=== PATIENT | female | born 1975 | race Caucasian/White ===

== ENCOUNTER 2024-09-29 21:58 | Observation (INO) | payer SELFPAY ==
[2024-09-29] VITALS (7 sets, daily range): BP systolic 114–132; BP diastolic 69–80; PULSE 75–88; RESP 15–17; TEMP 36.6; O2SAT 94–97; BMI 45.2
--- NOTE | 2024-09-29 22:23 | ECG_ITS ---
APPROVED REPORT Exam: Resting ECG HR:87 bpm ECG Measurements Heart Rate 87 AXES GA 154 P 63 QRSd 81 QRS 16 QT 377 T 30 QTc 421 Conclusion SINUS RHYTHM LOW QRS VOLTAGE IN PRECORDIAL LEADS [QRS DEFLECTION < 1.0 mV IN CHEST LEADS] POSSIBLE ANTERIOR MYOCARDIAL INFARCTION , OF INDETERMINATE AGE [30 ms Q WAVE IN V3/V4, OR R < 0.2 mV IN V4] POSSIBLE INFERIOR MYOCARDIAL INFARCTION , PROBABLY OLD [30 ms Q WAVE IN II/aVF] No STEMI Electronically signed by : GIOVANNA SMITH, 09/30/2024 06:14:57
--- OUTSIDE RECORDS SUMMARY | 2024-09-29 22:24 | XMS_ITS ---
Author Organization Unknown Medications Medication Instructions Effective Dates (start - stop) Status aripiprazole 10 MG Oral Tablet 2 [id number]:00:00.000+00:00 - Completed citalopram 40 MG Oral Tablet 202 07-18-21:00:00.000+00:00 - Completed clotrimazole 10 MG/ML Topica l Cream [id number]:00:00.000+00:0 0 - Completed 24 HR bupropion hydrochlorid e 150 MG Extended Release Oral Tablet [id number]:00:00.00 0+00:00 - Completed 24 HR bupropion hydrochlorid e 150 MG Extended Release Oral Tablet [id number]:00:00.00 0+00:00 - Completed aripiprazole 10 MG Oral Tablet 2 [id number]:00:00.000+00:00 - Completed clonidine hydrochloride 0.1 MG Oral Tablet [id number]:00:00.000+00:0 0 - Completed aripiprazole 10 MG Oral Tablet 2 [id number]:00:00.000+00:00 - Completed citalopram 40 MG Oral Tablet 202 06-27-29:00:00.000+00:00 - Completed citalopram 40 MG Oral Tablet 202 06-24-22:00:00.000+00:00 - Completed citalopram 40 MG Oral Tablet 202 07-17-24:00:00.000+00:00 - Completed clonidine hydrochloride 0.1 MG Oral Tablet [id number]:00:00.000+00:0 0 - Completed aripiprazole 10 MG Oral Tablet 2 512-98-72P37:00:00.000+00:00 - Completed citalopram 40 MG Oral Tablet 202 06-26-23:00:00.000+00:00 - Completed pantoprazole 40 MG Delayed Release Oral Tablet [id number]:00:00.000+00:0 0 - Completed 24 HR bupropion hydrochlorid e 150 MG Extended Release Oral Tablet [id number]:00:00.00 0+00:00 - Completed 24 HR bupropion hydrochlorid e 150 MG Extended Release Oral Tablet [id number]:00:00.00 0+00:00 - Completed 24 HR bupropion hydrochlorid e 150 MG Extended Release Oral Tablet [id number]:00:00.00 0+00:00 - Completed aripiprazole 10 MG Oral Tablet 2 586-58-58P25:00:00.000+00:00 - Completed aripiprazole 10 MG Oral Tablet 2 038-29-01O51:00:00.000+00:00 - Completed citalopram 40 MG Oral Tablet 202 07-16-00:00:00.000+00:00 - Completed aripiprazole 10 MG Oral Tablet 2 021-26-02N17:00:00.000+00:00 - Completed 24 HR bupropion hydrochlorid e 150 MG Extended Release Oral Tablet [id number]:00:00.00 0+00:00 - Completed aripiprazole 10 MG Oral Tablet 2 [id number]:00:00.000+00:00 - Completed clonidine hydrochloride 0.1 MG Oral Tablet [id number]:00:00.000+00:0 0 - Completed citalopram 40 MG Oral Tablet 202 06-25-15:00:00.000+00:00 - Completed citalopram 40 MG Oral Tablet 202 07-19-24:00:00.000+00:00 - Completed aripiprazole 10 MG Oral Tablet 2 908-22-60O73:00:00.000+00:00 - Completed citalopram 40 MG Oral Tablet 202 07-14-30:00:00.000+00:00 - Completed aripiprazole 10 MG Oral Tablet 2 [id number]:00:00.000+00:00 - Completed citalopram 20 MG Oral Tablet 202 2-09-23T00:00:00.000+00:00 - Completed citalopram 20 MG Oral Tablet 06-23-05:00:00.000+00:00 - Completed citalopram 20 MG Oral Tablet 07-20-07:00:00.000+00:00 - Completed citalopram 20 MG Oral Tablet 07-20-05:00:00.000+00:00 - Completed amoxicillin 875 MG / clavula nasir 125 MG Oral Tablet [id number]:00:00.000+00:0 0 - Completed citric acid 75 MG/ML / magne sium oxide 21.9 MG/ML / picosulfate sodium 0.0625 MG/ML Oral Solution [Clenpiq] [id number]:00:00.000+00:0 0 - Completed Patient Care team information Name Category Status Period Participants - - Proposed period not known -
--- OUTSIDE RECORDS SUMMARY | 2024-09-29 22:24 | XMS_ITS | Data Portability ---
Author Organization [facility] [place] Address [address] [place] [id number] Care Team Providers Care Telecommunications Line Installer Name Role Phone WILBERVIMALMinnieCHELLY Primary Care Provider Assessment Encounter Date Assessment Date Assessment LastModified by Organization Details LastModified Time 02/01/2023 02/01/2023 47-year-old female with: 1) CBD and pancreatic duct dilation: No clear evidence of obstruction or mass seen on recent outside MRI. Hepatic function labs unremarkable on 01/10. Coursened hepatic echotexture seen on US liver. -Schedule EUS +/- ERCP -Obtain comprehensive lab workup of potential causes of liver disease. She reports an extensive paternal family history of cirrhosis, grandfather with pancreatic cancer. -Repeat lipase 2) Diarrhea/pale stools: Obtain stool studies per below. 3) Colorectal cancer screening: Repeat colonoscopy suggested 05/2032 for screening purposes. [email or web address] Not available 02/01/2023 16:54:29 03/17/2023 03/17/2023 47-year-old female with: 1) CBD and pancreatic duct dilation: No clear evidence of obstruction or mass seen on recent outside MRI. Views on EUS were limited due to gastric bypass. Hepatic function labs unremarkable on 01/10 and again on 01/31. Lipase was minimally elevated at 93. Coursened hepatic echotexture seen on US liver. -Schedule EUS +/- ERCP -She reports an extensive paternal family history of cirrhosis, grandfather with pancreatic cancer. -Will check a fecal elastase per below. -No clear evidence of liver pathology currently. She may have sequela of prior HUNT. She is s/p gastric bypass. 2) Diarrhea/pale stools: Obtain stool studies per below. 3) Colorectal cancer screening: Repeat colonoscopy suggested 05/2032 for screening purposes. Not available 03/17/2023 17:44:45 Plan of Treatment Reminders Order Date Submit Date Provider Last Modified By Organization Details Last Modified Time Details Appointments None recorded. Lab gastrointes tinal pathogens panel, PCR, stool 2022 023 [email or web address], [address], [address], [place], [address], 3 12:21:14 pancreatic elastase, stool 2022 023 acaldwell 64 [facility], [address], [address], [place], [address], 3 12:21:14 fecal fat, qualitative , stool 2022 023 [email or web address], [address], [address], [place], [address], 3 12:21:14 O&P (ova & parasites), stool 2022 0[facility], [address], [address], [place], [address], 3 12:21:15 gastrointes tinal pathogens panel, PCR, stool [address] (Registration ), [address], [place], [address], 3 10:28:50 pancreatic elastase, stool [address] (Registration ), [address], [place], [address], 3 10:28:51 fecal fat, qualitative , stool [address] (Registration ), [address], [place], [address], 3 10:28:51 O&P (ova & parasites), stool [address] (Registration ), [address] [facility], [place], [address], 3 10:28:51 mitochondri al Ab, serum [address] (Registration ), [address] [facility], [place], [address], 3 10:28:51 smooth muscle Ab, serum [address] (Registration ), [address] [facility], [place], [address], 3 10:28:51 IgG, QN, serum [address] (Registration ), [address] [facility], [place], [address], 3 10:28:51 JULIANA (antinuclea r antibodies) screen, serum 2022 023 [facility] (Registration ), [address] [facility], [place], [address], 3 13:12:19 hepatic function panel, serum [address] (Registration ), [address] [facility], [place], [address], 3 10:28:52 lipase, serum or plasma [address] (Registration ), [address] [facility], [place], [address], 3 10:28:52 hepatitis panel (A+B+C), acute, serum [address] (Registration ), [address] [place] [address], [place], [address], 3 10:28:52 hepatitis B surface Ab, quantitativ e, serum [address] (Registration ), [address] [facility], [place], [address], 3 10:28:52 hepatitis A Ab, total, serum [address] (Registration ), [address] [facility], [place], [address], 3 10:28:52 ferritin, serum or plasma [address] (Registration ), [address] [facility], [place], [address], 3 10:28:52 hemochromat osis mutation (hfe), blood/tissu e [address] (Registration ), [address] [place] [address], [place], [address], 3 10:28:53 alpha-1-ant itrypsin (aat), QN, serum [address] (Registration ), [address] [place] [address], [place], [address], 3 10:28:53 alpha-1-ant itrypsin (aat) phenotype, serum [address] (Registration ), [address] [place] [address], [place], [address], 3 10:28:53 ceruloplasm in, serum 2022 023 acaldwell 64 [facility] (Registration ), [address], [place], [address], 10:28:53 Referral None recorded. Procedures None recorded. Surgeries None recorded. Imaging None recorded. Medication Orders None recorded. Patient TargetsNo targets recorded. Patient InstructionsNo instructions recorded. Reason for Referral None Reported. Results Created Date Observation Date Name Description Value Unit Range Abnormal Flag Note LastModifiedBy Organization Detail LastModifiedTime 02/02/2002/01/2023 HEPAT IC FUNCT IONAL PANEL total protein 6.9 g/dL 6.4-8. 2 Not Available [facility] ([facility]) [address], [place], [address], 02/01/2023 18:44:29 02/02/20 23 02/01/2023 HEPAT IC FUNCT IONAL PANEL albumin 3.6 g/dL 3.4-5. 0 Not Available [facility] ([facility]) [address], [place], [address], 02/01/2023 18:44:29 02/02/20 23 02/01/2023 HEPAT IC FUNCT IONAL PANEL bilirubin direct 0.1 O.oo-0 .30 Not Available [facility] ([facility]) [address], [place], [address], 02/01/2023 18:44:29 02/02/20 23 02/01/2023 HEPAT IC FUNCT IONAL PANEL bilirubin total 0.20 mg/dL 0.10-1 .00 Not Available [facility] ([facility]) [address], [place], [address], 02/01/2023 18:44:29 02/02/20 23 02/01/2023 HEPAT IC FUNCT IONAL PANEL bilirubin indirect 0.10 Not Available [facility] ([facility]) [address], [place], [address], 02/01/2023 18:44:29 02/02/20 23 02/01/2023 HEPAT IC FUNCT IONAL PANEL AST (SGOT) 28 U/L 0-37 Not Available [facility] ([facility]) [address] , [place], [address], 02/01/2023 18:44:29 02/02/20 23 02/01/2023 HEPAT IC FUNCT IONAL PANEL ALT (SGPT) 32 U/L 0-65 Not Available [facility] ([facility]) [address] , [place], [address], 02/01/2023 18:44:29 02/02/20 23 02/01/2023 HEPAT IC FUNCT IONAL PANEL alk phosphatase 93 U/L 46-116 Not Available [facility] ([facility]) [address] [place] [address], [place], [address], 02/01/2023 18:44:29 02/02/20 23 02/01/2023 LIPAS E lipase 93 U/L 16-77 high Not Available [facility] ([facility]) [address] [place] [address], [place], [address], 02/01/2023 18:44:30 02/02/20 23 02/01/2023 LUCÍA TIN ferritin, serum 77 NG/mL 3-244 Not Available [facility] ([facility]) [address] , [place], [address], 02/01/2023 18:44:31 02/02/20 23 02/03/2023 JULIANA W/REF HEAVEN IF POSIT GALINA antinuclear Ab, direct NEGATI VE negati ve Perfo rmed at: CB - [facility] ([facility]) [address] [address] Lab Direc tor: James puente PhD, Phone : [phone] Not Available [facility] ([facility]) [address] , [place], [address], 02/03/2023 13:12:19 02/02/20 23 02/11/2023 A1A DEFIC ENCY PROFI LE aat, DNA analysis Commen t c.109 6 G>A (p.Gl u366L ys), Z allel e - Not detec jackelin c.863 A>T (p.Gl u288V al), S allel e - Detec jackelin, heter ozygo us Not assoc iated with incre ased risk of devel oping clini uma relev ant sympt oms of alpha -1 antit rypsi n defic iency . See Addit ional Clini ruby Infor matio n and Comme nts. Not Available [facility] ([facility]) [address] , [place], [address], 02/11/2023 17:10:46 02/02/20 23 02/11/2023 A1A DEFIC ENCY PROFI LE additional information: Commen t . Addit ional Clini ruyb Infor matio n: Alpha -1 antit rypsi n defic iency is an autos omal reces sive metab olic disor monserrat with varia ble sever ity and age at onset . Signs and sympt oms may inclu de incre ased risk for chron ic obstr uctiv e lung disea se that typic ally manif ests after age 30, liver disea se, and liver cance r. Liver disea se can be prese nt in infan cy as neona nicolle aquilino stasi s (stephani dice) or in adult parkinson as cirrh osis and fibro sis. Lung and liver disea se may be accel erate d by envir onmen nicolle expos ures such as smoki ng and exces sive alcoh ol use. Estab lishe d treat ments for COPD and emphy sema are used to treat lung disea se; lung and/o r liver trans plant ation may be an optio n for those with with sever e disea se. Intra venou s augme ntati on thera py may be avail able for patie nts who meet crite sujey. . Comme nts: The ZZ and SZ genot ypes accou nt for more than 95% of indiv idual s with sever e alpha -1 antit rypsi n defic iency . To rule out other varia nts, furth er testi ng of sympt omati c indiv idual s heter ozygo us for one varia nt (S or Z) or with negat galina resul ts may inclu de pheno typin g (PI typin g), AAT level testi ng, and/o r expan ded genot yping . . Twila ic couns jannet is recom tony d to discu ss the poten tial clini ruby impli catio ns of posit galina resul ts, as well as recom menda tions for testi ng famil y membe rs. Twila ic Coord inato rs are avail able for healt h care provi ders to discu ss resul ts at [phone] ([phone] . Test Detai ls: Two varia nts jorge luis zed: c.109 6 G>A (p.Gl u366L ys), commo nly refer red to as the Z allel e or PI*Z c.863 A>T (p.Gl u288V al), commo nly refer red to as the S allel e or PI*S . Metho ds/Li mitat ions: DNA jorge luis sis of the S and Z allel es in the SERPI NA1 gene ([id number]) was perfo rmed by multi plex allel e-spe cific PCR ampli ficat ion follo wed by gel elect ropho resis . Resul ts must be combi neftali with clini ruby infor matio n for the most accur ate inter preta tion. Molec ular- based testi ng is highl y accur ate, but as in any labor atory test, rare diagn ostic error s may occur . False posit galina or false negat galina resul ts may occur for reaso ns that inclu de twila ic varia nts, blood trans fusio ns, bone marro w trans plant ation , somat ic or tissu e-spe cific mosai cism, misla beled sampl es, or iman eous repre senta tion of famil y relat ionsh ips. . This test was devel oped and its perfo rmanc e augusto cteri stics deter mined by [facility]. It has not been clear ed or appro joyce by the Food and Drug Admin istra tion. . Refer ences : Marcus naidu RA, Sarita erwin G, Phillip phillips ML, Bernadette alvarado M, Cisco CE, Ronald an K, Lisa meeks DK, Leslie t SL, Brenda alvarado JM, Mera BENAVIDEZ, Domenic muñiz C, Hiral blue J. The Diagn osis and Manag ement of Alpha -1 Antit rypsi n Defic iency in the Adult . Chron ic Obstr Pulm Dis. 2016 Oct 19;3(3 ):668 -682. doi: 10.15 326/j copdf .3.32014. 0182. PMID: 85370 891; PMCID : PMC55 22748 . Mera BENAVIDEZ, Brendan christie V, Steffanie BARKLEY. Alpha -1 Antit rypsi n Defic iency . 2005Mar 11 Updat ed 2019October 03 . In: Marcos MP, Elva FLEMING, Barb MOTLEY, et al., yasmeen rs. GeneR inocenciaw s(R) Inter net . [place]andro ricks ([place]): [facility] [place]; 1992- 2020. Avail able from: https ://rosie harvey.nickolasb i.nlm .nih. gov/b ooks/ NBK15 19/ Not Available [facility] ([facility]) [address] [facility], [place], [address], 02/11/2023 17:10:46 02/02/2002/11/2023 A1A DEFIC ENCY PROFI LE a1a sign Rose Marie Rutherford, PhD Not Available [facility] ([facility]) [address] [facility], [place], [address], 02/11/2023 17:10:46 02/02/2002/11/2023 A1A DEFIC ENCY PROFI LE a1a rfx to phenotype Commen t A1A Pheno type is indic ated for this speci men. Perfo rmed at: BN - [facility] [address] [place] [address] Lab Direc tor: Elizabeth howard MD, Phone : [phone] Perfo rmed at: TG - [facility] RTP [address] [facility] , [place] [address] Lab Direc tor: K[facility] , Phone : [phone] Not Available [facility] ([facility]) [address] [facility], [place], [address], 02/11/2023 17:10:46 02/02/20 23 02/11/2023 A1A DEFIC ENCY PROFI LE gueqd-9-[id number] trypsin,seru m 116 mg/dL 101-18 7 Not Available [facility] ([facility]) [address] [facility], [place], [address], 02/11/2023 17:10:46 02/02/20 23 02/11/2023 ACUTE HEPAT ITIS PANEL hep A Ab, IgM Negati ve negati ve Not Available [facility] ([facility]) [address] [facility], [place], [address], 02/11/2023 17:10:47 02/02/20 23 02/11/2023 ACUTE HEPAT ITIS PANEL HBsAg screen Negati ve negati ve Not Available [facility] ([facility]) [address] [facility], [place], [address], 02/11/2023 17:10:47 02/02/20 23 02/11/2023 ACUTE HEPAT ITIS PANEL hep B core Ab, IgM Negati ve negati ve Not Available [facility] ([facility]) [address] [facility], [place], [address], 02/11/2023 17:10:47 02/02/20 23 02/11/2023 ACUTE HEPAT ITIS PANEL HCV Ab Non Reacti ve non reacti ve Perfo rmed at: CB - [facility] [address] [facility], [place] [address] Lab Direc tor: James puente PhD, Phone : [phone] Not Available [facility] ([facility]) [address], [place], [address], 02/11/2023 17:10:47 02/02/20 23 02/11/2023 A1A DEFIC ENCY PROFI LE aat, DNA analysis Commen t c.109 6 G>A (p.Gl u366L ys), Z allel e - Not detec jackelin c.863 A>T (p.Gl u288V al), S allel e - Detec jackelin, heter ozygo us Not assoc iated with incre ased risk of devel oping clini uma relev ant sympt oms of alpha -1 antit rypsi n defic iency . See Addit ional Clini ruby Infor matio n and Comme nts. Not Available [facility] ([facility]) [address], [place], [address], 02/11/2023 17:10:48 02/02/20 23 02/11/2023 A1A DEFIC ENCY PROFI LE additional information: Commen t . Addit ional Clini ruby Infor matio n: Alpha -1 antit rypsi n defic iency is an autos omal reces sive metab olic disor monserrat with varia ble sever ity and age at onset . Signs and sympt oms may inclu de incre ased risk for chron ic obstr uctiv e lung disea se that typic ally manif ests after age 30, liver disea se, and liver cance r. Liver disea se can be prese nt in infan cy as neona nicolle aquilino stasi s (stephani dice) or in adult parkinson as cirrh osis and fibro sis. Lung and liver disea se may be accel erate d by envir onmen nicolle expos ures such as smoki ng and exces sive alcoh ol use. Estab lishe d treat ments for COPD and emphy sema are used to treat lung disea se; lung and/o r liver trans plant ation may be an optio n for those with with sever e disea se. Intra venou s augme ntati on thera py may be avail able for patie nts who meet crite sujey. . Comme nts: The ZZ and SZ genot ypes accou nt for more than 95% of indiv idual s with sever e alpha -1 antit rypsi n defic iency . To rule out other varia nts, furth er testi ng of sympt omati c indiv idual s heter ozygo us for one varia nt (S or Z) or with negat galina resul ts may inclu de pheno typin g (PI typin g), AAT level testi ng, and/o r expan ded genot yping . . Twila ic couns eling is recom tony d to discu ss the poten tial clini ruby impli catio ns of posit galina resul ts, as well as recom menda tions for testi ng famil y membe rs. Twila ic Coord inato rs are avail able for healt h care provi ders to discu ss resul ts at [phone] ). . Test Detai ls: Two varia nts jorge luis zed: c.109 6 G>A (p.Gl u366L ys), commo nly refer red to as the Z allel e or PI*Z c.863 A>T (p.Gl u288V al), commo nly refer red to as the S allel e or PI*S . Metho ds/Li mitat ions: DNA jorge luis sis of the S and Z allel es in the SERPI NA1 gene ([id number]) was perfo rmed by multi plex allel e-spe cific PCR ampli ficat ion follo wed by gel elect ropho resis . Resul ts must be combi neftali with clini ruby infor matio n for the most accur ate inter preta tion. Molec ular- based testi ng is highl y accur ate, but as in any labor atory test, rare diagn ostic error s may occur . False posit galina or false negat galina resul ts may occur for reaso ns that inclu de twila ic varia nts, blood trans fusio ns, bone marro w trans plant ation , somat ic or tissu e-spe cific mosai cism, misla beled sampl es, or iman eous repre senta tion of famil y relat ionsh ips. . This test was devel oped and its perfo rmanc e augusto cteri stics deter mined by [employer] [facility]. It has not been clear ed or appro joyce by the Food and Drug Admin istra tion. . Refer ences : Marcus naidu RA, Sarita o G, Phillip ly ML, Bernadette s M, Cisco CE, Ronald blue K, Lisa meeks DK, Leslie crenshaw SL, Brenda KUMAR, Mera barnard JK, Domenic muñiz C, Hiral Ward. The Diagn osis and Manag ement of Alpha -1 Antit rypsi n Defic iency in the Adult . Chron ic Obstr Pulm Dis. 2016 Oct 19;3(3 ):668 -682. doi: 10.15 326/j copdf .3.32014. 0182. PMID: 58235 891; PMCID : PMC55 80096 . Mera BENAVIDEZ, Brendan christie V, Steffanie BARKLEY. Alpha -1 Antit rypsi n Defic iency . 2005Mar 11 Updat ed 2019October 03 . In: Marcos MP, Elva higgins HH, Barb RA, et al., yasmeen rs. GeneR jake alvarado(R) Inter net . [place]): [employer] [place] [employer]; 1992- 2020. Avail able from: https ://ww w.ncb i.nlm .nih. gov/b ooks/ NBK15 19/ Not Available [facility] ([facility]) [address] [facility], [place], [address], 02/11/2023 17:10:48 02/02/20 23 02/11/2023 A1A DEFIC ENCY PROFI LE a1a sign Rose Marie Rutherford, PhD Not Available [facility] ([facility]) [address] [facility], [place], [address], 02/11/2023 17:10:48 02/02/20 23 02/11/2023 A1A DEFIC ENCY PROFI LE a1a phenotype confirmation MS Not Available [facility] ([facility]) [address], [place], [address], 02/11/2023 17:10:48 02/02/20 23 02/11/2023 A1A DEFIC ENCY PROFI LE a1a interpertati on Commen t Pheno type testi ng, using Isoel ectri c focus ing (IEF) metho dol ogy, shows confi rmati on of the A-1-A DNA Genot ype test resul t. Perfo rmed at: BN - [facility] [address] [facility] [place] [address] Lab Direc tor: Elizabeth howard MD, Phone : [phone] Not Available [facility] ([facility]) [address], [place], [address], 02/11/2023 17:10:48 02/02/20 23 02/11/2023 A1A DEFIC ENCY PROFI LE a1a rfx to phenotype Commen t A1A Pheno type is indic ated for this speci men. Perfo rmed at: BN - [facility] [address] [facility] [place] [address] Lab Direc tor: Elizabeth howard MD, Phone : [phone] Perfo rmed at: - [facility] RTP [address] [facility] , [place] [address] Lab Direc tor: Keshav [facility] , Phone : [phone] Not Available [facility] ([facility]) [address] [facility], [place], [address], 02/11/2023 17:10:48 02/02/20 23 02/11/2023 A1A DEFIC ENCY PROFI LE pgyte-2-jkxx trypsin,seru m 116 mg/dL 101-18 7 Not Available [facility] ([facility]) [address] [facility], [place], [address], 02/11/2023 17:10:48 02/02/20 23 02/11/2023 ACUTE HEPAT ITIS PANEL hep A Ab, IgM Negati ve negati ve Not Available [facility] ([facility]) [address], [place], [address], 02/11/2023 17:10:48 02/02/20 23 02/11/2023 ACUTE HEPAT ITIS PANEL HBsAg screen Negati ve negati ve Not Available [facility] ([facility]) [address] [facility], [place], [address], 02/11/2023 17:10:48 02/02/20 23 02/11/2023 ACUTE HEPAT ITIS PANEL hep B core Ab, IgM Negati ve negati ve Not Available [facility] ([facility]) [address] [facility], [place], [address], 02/11/2023 17:10:48 02/02/2002/11/2023 ACUTE HEPAT ITIS PANEL HCV Ab Non Reacti ve non reacti ve [facility] [address] [place], [place] [address] Lab Direc tor: James puente PhD, Phone : [phone] Not Available [facility] ([facility]) [address] [place], [address], 02/11/2023 17:10:48 02/02/20 23 02/11/2023 ACUTE HEPAT ITIS PANEL interpretati on: Commen t . Not infec jackelin with HCV unles s early or acute infec tion is suspe cted (whic h may be delay ed in an immun ocomp romis ed indiv idual ), or other evide nce exist s to indic ate HCV infec tion. 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 In sympt omati c indiv idual s, other cause s of iron overl oad shoul d be evalu ated. See Addit ional Infor matio n and Comme nts. . Addit ional Clini ruby Infor matio n: Hered itary hemoc hroma tosis (HFE relat ed) is an autos omal reces sive iron stora ge disor monserrat. Patie nts may have a twila ic diagn osis of hered itary hemoc hroma tosis and never show clini ruby sympt oms. Clini ruby sympt oms typic ally appea r betwe en 40 to 60 years in males and after menop ause in femal es. Signs and sympt oms may inclu de organ damag e, prima rily in the liver , risk for hepat ocell ular carci noma, diabe shankar, and heart disea se due to iron accum ulati on. Life expec tancy may be decre ased in indiv idual s who devel op cirrh osis. Treat ment for clini uma sympt omati c indiv idual s may inclu de thera peuti c phleb otomy . Liver trans plant may be used to treat end stage liver failu re. For preve ntive care, monit oring for iron overl oad is recom tony d for patie nts who are homoz ygous for c.845 G>A (p.Cy s282T yr) and have yet to exper ience clini ruby sympt oms. . Comme nts: The most commo n HFE varia nts assoc iated with hered itary hemoc hroma tosis are c.845 G>A (p.Cy s282T yr), c.187 C>G (p.Hi s63As p), c.193 A>T (p.Se r65Cy s). While patie nts homoz ygous for c.845 G>A (p.Cy s282T yr) are the most likel y to prese nt clini ruby sympt oms, less than 10% devel op clini uma signi fican t iron overl oad with tissu e and organ damag e. . Twila ic couns jannet is recom tony d to discu ss the poten tial clini ruby impli catio ns of posit galina resul ts, as well as recom menda tions for testi ng famil y membe rs. Twila ic Coord inato rs are avail able for healt h care provi ders to discu ss resul ts at [phone] ([phone] . Test Detai ls: Three varia nts jorge luis zed: c.845 G>A (p.Cy s282T yr), commo nly refer red to as C282Y c.187 C>G (p.Hi s63As p), commo nly refer red to as H63D c.193 A>T (p.Se r65Cy s), commo nly refer red to as S65C . Metho ds/Li mitat ions: DNA Jorge Luis sis of the HFE gene ([id number]) was perfo rmed by PCR ampli ficat ion follo wed by restr ictio n enzym e diges tion jorge luis ses. Resul ts must be combi neftali with clini ruby infor matio n for the most accur ate inter preta tion. Molec ular- based testi ng is highl y accur ate, but as in any labor atory test, diagn ostic error s may occur . False posit galina or false negat galina resul ts may occur for reaso ns that inclu de twila ic varia nts, blood trans fusio ns, bone marro w trans plant ation , somat ic or tissu e-spe cific mosai cism, misla beled sampl es, or iman eous repre senta tion of famil y relat ionsh ips. This test was devel oped and its perfo rmanc e augusto cteri stics deter mined by Devi washburn. It has not been clear ed or appro joyce by the Food and Drug Admin istra tion. . Refer ences : Clifton BR, Patricio PC, Komonchol ey KV, Miriam keenan LW, Zach keenan ; [employer]i can [employer] i[employer] n for the Study of Liver Disea ses. Diagn osis and manag ement of hemoc hroma tosis : 2010 pract ice guide line by the Ameri can Assoc iatio n for the Study of Liver Disea ses. Hepat ology . 2010; 4(1): 328-4 3. doi: 10.10 /meena p.243 30. PMID: 48957 290; PMCID : PMC31 51169 . Sandi G, Mega noguera P, Jossie howard DW, Sultana r H, Pablo freeman O, Monet n S, Jennifer o I, Paxton s M, Salvador savage S. EMQN best pract ice guide lines for the molec ular twila ic diagn osis of hered itary hemoc hroma tosis (HH). Eur J Hum Twila . 2016 Aug;2 4(4): 479-9 5. doi: 10.10 /ej hg.20 15.12 8. Epub 2014 8. PMID: 43313 218; PMCID : PMC49 79283 . Not Available [facility] ([facility]) [address], [place], [address], 02/11/2023 17:10:49 02/02/20 23 02/11/2023 HERED ITARY HEMOC HROMA TOSIS reviewed Rose Marie Rutherford, PhD Perfo rmed at: - Devi washburn [place] [address] , [place] [address] Lab Direc tor: Keshav [facility] , Phone : [phone] Not Available [facility] ([facility]) [address], [place], [address], 02/11/2023 17:10:49 02/02/2002/11/2023 HEP B S AB GINNY hep B surface Ab <3.1 mIU/m L immuni ty>9.9 low Statu s of Immun ity Anti- HBs Level ----- ----- ----- --- ----- ----- ---- Incon siste nt with Immun ity 0.0 - 9.9 Consi stent with Immun ity >9.9 Perfo rmed at: [place] [id number] [place], [place] [id number] Lab Direc tor: James puente PhD, Phone : [phone] Not Available [facility] ([facility]) [address] [facility], [place], [address], 02/11/2023 17:10:50 02/02/20 23 02/11/2023 ACTIN (SMOO TH MUSCL E) AB actin (smooth muscle) Ab 19 units 0-19 Negat galina 0 - 19 Weak posit galina 20 - 30 Moder ate to stron g posit galina >30 . Actin Antib odies are found in 52-85 % of patie nts with autoi mmune hepat itis or chron ic activ e hepat itis and in 22% of patie nts with prima ry bilia ry cirrh osis. Perfo rmed at: [place] [id number] [place] [address] Lab Direc tor: James puente PhD, Phone : [phone] Not Available [facility] ([facility]) [address] [facility], [place], [address], 02/11/2023 17:10:51 02/02/2002/11/2023 MITOC HONDR IAL ANTIB ODIES mitochondria l (M2) Ab <20.0 units 0.0-20 .0 Negat galina 0.0 - 20.0 Equiv ocal 20.1 - 24.9 Posit galina >24.9 . Mitoc hondr ial (M2) Antib odies are found in 90-96 % of patie nts with prima ry bilia ry cirrh osis. Perfo rmed at: [facility] [address] [place] [address] Lab Direc tor: James puente PhD, Phone : [phone] Not Available [facility] ([facility]) [address] [place], [address], 02/11/2023 17:10:52 02/02/20 23 02/11/2023 CERUL OPLAS MIN ceruloplasmi n 27.5 mg/dL 19.0-3 9.0 Perfo rmed at: [facility] [address] [place] [address] Lab Direc tor: James puente PhD, Phone : [phone] Not Available [facility] ([facility]) [address] [place], [address], 02/11/2023 17:10:53 02/02/20 23 02/11/2023 IGG IgG 847 mg/dL 586-16 02 Perfo rmed at: [facility] [address] [place] [address] Lab Direc tor: James puente PhD, Phone : [phone] Not Available [facility] ([facility]) [address] [place], [address], 02/11/2023 17:10:54 02/02/2002/11/2023 HEP A AB, TOTAL hep A Ab, total Positi ve negati ve delta Comme nt: The HAV total antib chepe assay detec ts both IgG and IgM but does not diffe renti ate betwe en them. A negat galina resul t sugge sts susce ptibi lity to infec tion. A posit galina resul t could be due to vacci natio n, previ ously resol joyce infec tion or activ e infec tion. Testi ng for HAV IgM shoul d be perfo rmed if activ e HAV infec tion is suspe cted. [facility] offer s profi les that will autom atica lly refle x posit galina HAV total antib chepe resul ts to IgM (e.g. , panel #[id number] HAV Antib chepe w/ Rfx). Perfo rmed at: - [facility] [address] [facility], [place] [id number] [facility] Lab Direc tor: James puente PhD, Phone : [phone] Not Available [facility] ([facility]) [address] , [place], [address], 02/11/2023 17:10:55 Result Notes None recorded. Problems Name Problem SNOMED Code Status Onset Date Resolution Date Notes Provider Name and Address Organization Details Recorded Time Abnormal findings diagnostic imaging of liver+biliar y tract 723014578 Active 2022 Gentry Stock PA-C [address] , [place], [address] , [facility] [place] 3 15:00:32 Pale feces 083079827 Active 2022 Gentry Stock PA-C [address] [place], [address] , [facility] & [place] 3 15:00:53 Diarrhea 18881297 Active 2022 Gentry Stock PA-C [address] [place], [address] , [facility] & [place] 3 15:01:01 Pancreatic lipase above reference range 602877343 Active 2022 Gentry Stock PA-C [address] , [place], [address] , [facility] & [place] 3 16:52:18 Problem Notes None recorded. Medical Equipment None Reported. Medications Name Sig Start Date Stop Date Status Note LastModified by Organization Details LastModified Time clonidine HCl 0.1 mg tablet TAKE 1 TABLET BY MOUTH EVERYDAY AT BEDTIME active Not Available Not Available No t Available citalopram 40 mg tablet TAKE 1 TABLET BY MOUTH EVERY DAY active Not Available Not Available No t Available fluconazole 150 mg tablet TAKE 1 TABLET BY MOUTH EVERY DAY active Not Available Not Available No t Available citalopram 20 mg tablet TAKE 1 ORAL TABLET ONCE A DAY WITH 40 MG TABLET. active Not Available Not Available No t Available pantoprazol e 40 mg tablet,frandy yed release TAKE 1 TABLET BY MOUTH EVERY DAY active Not Available Not Available No t Available bromphenira mine-pseudo ephedrine-D M 2 mg-30 mg-10 mg/5 mL oral syrup TAKE 10 MILLILITE RS BY MOUTH EVERY 8 HOURS NEEDED FOR COUGH/CON GESTION active Not Available Not Available No t Available clotrimazol e 1 % topical cream APPLY TO AFFECTED AREA TWICE A DAY active Not Available Not Available No t Available amoxicillin 875 mg-potassiu m clavulanate 125 mg tablet TAKE 1 TABLET BY MOUTH TWICE A DAY 02/01 completed Not Available Not Available Not Available aripiprazol e 10 mg tablet TAKE 1 TABLET BY MOUTH EVERYDAY AT BEDTIME active Not Available Not Available No t Available aripiprazol e 5 mg tablet TAKE 1 TABLET BY MOUTH EVERYDAY AT BEDTIME active Not Available Not Available No t Available bupropion HCl XL 150 mg 24 hr tablet, extended release TAKE 1 TABLET BY MOUTH EVERY DAY IN THE MORNING active Not Available Not Available No t Available Clenpiq 10 mg-3.5 gram-12 gram/160 mL oral solution DRINK 1 5.4 OZ BOTTLE AT 5 PM FOLLOWED BY 5 CUPS OF CLEAR LIQUID. REPEAT 6 HOURS BEFORE PROCEDURE . active Not Available Not Available No t Available Vitals Date Recorded Body weight Body temperature Heart rate Oxygen saturation Oxygen saturation in Arterial blood by Pulse oximetry Heart rate Systolic blood pressure Diastolic blood pressure Provider Name and Address Organization Details Last Updated DateTime 3 081506. 55 g 98.2 [degF] 72 /min 97 % 97 % 72 /min 138 mm[Hg] 94 mm[Hg] [facility] [place] [facility] [place] 3 14:33:53 Date Recorded Body weight Body mass index (BMI) Body height Body temperature Heart rate Heart rate Oxygen saturation Oxygen saturation in Arterial blood by Pulse oximetry Systolic blood pressure Diastolic blood pressure Provider Name and Address Organization Details Last Updated DateTime 3 207783. 35 g 50.2 kg/m2 170.18 cm 97.6 [degF] 68 /min 64 /min 98 % 98 % 135 mm[Hg] 61 mm[Hg] Margareth EATON [facility] & [place] 14:45:12 Social History Question Answer Notes LastModified by Organizat ion Details LastModified Time Tobacco Smoking Status Never Smoker Margareth bro, ANGELITO [facility] & [place] 02/01/2023 14:33:02 What Is Your Level Of Caffeine Consumption? Moderate [email or web address] Information not available 02/01/2023 Sex: Unknown Functional Status Question Answer Note LastModified by Organizat ion Details LastModified Time Do you use any illicit or recreational drugs? No Information not available 02/01/2023 Do you or have you ever used any other forms of tobacco or nicotine? No [email or web address] Information not available 02/01/2023 What is your level of alcohol consumption? None [email or web address] Information not available 02/01/2023 Mental Status None recorded. Family History Nothing Reported. Medical History No medical history recorded. Gynecological HistoryNo gynecological history recorded. Obstetrics History GPAL:G 0 P 0 0 0 0 Past Encounters Encounter ID Performer Location Encounter Start Date Encounter Closed Date Diagnosis/Indication Diagnosis SNOMED-CT Code Diagnosis ICD10 Code Diagnosis Note [id number] Gentry Stock PA-C [facility] [address] [place] [address] 02/01/2023 14:19:12 02/01/2023 15:14:26 Abnormal findings diagnostic imaging of liver+biliary tract 420744013 R93.2 History of bypass of stomach 787273801 Z98.84 Pale feces 880897527 R19 .5 Diarrhea 80500087 R19.7 Pancreatic lipase above reference range 275105120 R85.0 History of colonoscopy 2389073733 09 Z98.890 [id number] Gentry Stock PA-C [facility] [address] [place] [address] 03/17/2023 14:37:10 03/17/2023 15:34:23 Abnormal findings diagnostic imaging of liver+biliary tract 791719454 R93.2 History of bypass of stomach 711613221 Z98.84 Pale feces 263883494 R19 .5 Diarrhea 14825301 R19.7 Pancreatic lipase above reference range 322935932 R85.0 History of colonoscopy 0983843189 09 Z98.890 Health Concerns Section Related Observation LastModified by Organization Detai ls LastModified Time None Recorded Concern Status LastModified by Organization Details LastModified Time None Recorded Advance Directives Directive None Recorded Payers Insurance Date Sequence Insurance Name Policy Number Policy Wells Covered Member ID Wells Member ID Guarantor Name 03/16/2023 1 [place] [id number] Kalli Lyons [id number] Kalli Lyons Notes Date Note Type Note Provider Name and Address Organization Details Recorded Time 02/01/2023 text/html Ms. Lyons is a pleasant 47-year-old female with history of gastric bypass in 2006 who was referred by Dr. Geiger for evaluation of recent abnormal imaging of the biliary tract. She underwent RUQ US at an outside hospital on 12/08/22 that showed coursening of the liver and a mildly dilated CBD at 8mm. MRI liver w/wo was performed on 01/10/23 that showed a dilated pancreatic duct in the head up to 9mm, dilated CBD up to 1.3 cm without evidence of choledocolithiasis. There was intrahepatic biliary dilation centrally. Cholelithiasis was noted. No discrete mass was seen. Fatty infiltration of the liver was present. Labs from 12/03/22 included a normal CBC with diff, normal CMP, and lipase elevated at approximately twice the upper limit of normal. Today, she reports frequent loose, koehler appearing stools. She reports occasional upper mid abdominal pain. She reports a history of pancreatic cancer in her maternal grandfather and extensive family history of cirrhosis in multiple 2nd degree relative. She had a normal screening colonoscopy in May. Gentry Stock PA-C [address], [place], [address], [place] [facility] [place] [facility] [place] 02/01/2023 16:54:43 03/17/2023 text/html PREVIOUS ( 3): Ms. Lyons is a pleasant 47-year-old female with history of gastric bypass in 2006 who was referred by Dr. Geiger for evaluation of recent abnormal imaging of the biliary tract. She underwent RUQ US at an outside hospital on 12/08/22 that showed coursening of the liver and a mildly dilated CBD at 8mm. MRI liver w/wo was performed on 01/10/23 that showed a dilated pancreatic duct in the head up to 9mm, dilated CBD up to 1.3 cm without evidence of choledocolithiasis. There was intrahepatic biliary dilation centrally. Cholelithiasis was noted. No discrete mass was seen. Fatty infiltration of the liver was present. Labs from 12/03/22 included a normal CBC with diff, normal CMP, and lipase elevated at approximately twice the upper limit of normal. Today, she reports frequent loose, koehler appearing stools. She reports occasional upper mid abdominal pain. She reports a history of pancreatic cancer in her maternal grandfather and extensive family history of cirrhosis in multiple 2nd degree relative. She had a normal screening colonoscopy in May. CURRENT (03/17/23): Ms. Lyons presents to the office today for follow-up. She underwent EUS recently with no pancreatic abnormality identified. Views of the bilary tree were limited due to previous gastric bypass. She feels okay overall at this time. Her loose stools have persisted. Workup of potential causes of liver disease was unremarkable. Gentry Stock PA-C [address] , [place], [address], [facility] [place] [facility] [place] 03/17/2023 17:45:16 OBGyn Episode No OBEpisode recorded.
--- NOTE | 2024-09-29 22:58 | ED_ITS ---
Discharge Plan Disposition Patient Disposition: Admitted Condition: Good Clinical Impressions Clinical Impression: Pre-syncope Discharge ED Provider: Joel Flores Adult HPI General Chief complaint: Dizziness Stated complaint: high blood pressure,tightness in chest and neck Time Seen by Provider: 09/29/24 22:58 Mode of Arrival: Ambulatory Source of Information: Patient Description of Symptoms (Recalled from ER Triage Doc. by RN): Patient has been having fainting spells for 3 weeks. Took her blood pressure and it was high so she came to the ER. Blood pressure is normal now. She does not take anything for blood pressure per the patient, History of Present Illness HPI narrative: 49-year-old female who reports history of mental health problems but no other known chronic medical conditions presents to the ER with complaints of fainting spells for the last 2 to 3 weeks. Patient reports she will have random seemingly unprovoked episodes where she feels like she is not connected to her chest and starts feeling sleepy. She has never actually fully syncopized. They are very brief episodes. Nothing specific seems to cause or stop them. She states she has not had any recent medication changes. She does not smoke or drink alcohol. No other illicit drugs. Patient reports her symptoms have been gradually progressive becoming more frequent and in the last 4 days have occurred daily. Patient states she has had no recent illness, no fevers, chills, chest pain, difficulty breathing, numbness, tingling, weakness, abdominal pain, nausea, vomiting, diarrhea, dysuria, or hematuria. She states she has not seen her PCP for this problem despite its longevity. She reports no known cardiac history. She reports tonight she had one of the episodes while sitting in her chair and felt lightheaded and tightness across her chest. She states she checked her blood pressure and it was allegedly 200s over 100s in the right arm and only a systolic of 99 in the left. She therefore came to the ER. She reports she is taking her blood pressure with a wrist cuff. Blood pressure upon arrival to the ER taken in the right upper extremity is 119/69 on arrival. Patient reports no tearing or crushing chest pain, no seizure-like activity, no other associated symptoms. Related Data Home Medications ?Medication ?Instructions ?Recorded ?Confirmed aripiprazole 10 mg tablet 10 mg PO DAILY 09/30/24 09/30/24 baclofen 10 mg tablet 10 mg PO NEEDED PRN back spasms 09/30/24 09/30/24 bupropion HCl 150 mg 24 hr tablet, 150 mg PO DAILY 09/30/24 09/30/24 extended release citalopram 40 mg tablet 40 mg PO DAILY 09/30/24 09/30/24 clonidine HCl 0.1 mg tablet 0.1 mg PO HS 09/30/24 09/30/24 tirzepatide (weight loss) 7.5 7.5 mg SQ WEEKLY 09/30/24 09/30/24 mg/0.5 mL subcutaneous pen injector (Zepbound) Allergies Allergy/AdvReac Type Severity Reaction Status Date / Time PCN (PENICILLIN) Allergy Unknown Uncoded 05/03/17 14:00 [facility] Disclaimer: The information contained in this section may have been updated after the patient was seen, as this information can be updated by other users. Medical History (Updated 09/30/24 @ 18:41 by Aaron Ta MD) Bipolar 1 disorder Surgical History (Updated 09/30/24 @ 03:19 by Wandy Cullen RN) Gastric bypass status for obesity Family History (Updated 09/30/24 @ 03:19 by Wandy uCllen RN) Father Melanoma Mother Atrial fibrillation Grandmother Atrial fibrillation Social History (Updated 09/30/24 @ 03:19 by Wandy Cullen RN) Smoking Status: Never smoker alcohol intake: never current occupational status: other Travel in the last 8 weeks?: None Have you lived/traveled outside [place] in past 30 days?: No Contact w/someone who lives/traveled outside US past 30 days?: No Exposure to someone with infectious disease in past 14 days?: No Do you have a fever (greater than 100.4 F or 38 C)?: No Have you tested positive for COVID-19?: No Exposed to someone with COVID-19 in past 14 days?: No Do you have a sore throat?: No Do you have a cough?: No Do you have any weakness?: No Are you experiencing any nausea/vomitting?: No Do you have any diarrhea?: No Are you experiencing any unusual bleeding?: No Do you have any muscle aches/pain?: No Do you have any abdominal pain?: No Are you experiencing loss of taste or smell?: No ROS Obtained: Yes Systems reviewed as appropriate & no additional complaints except as documented per HPI Physical Exam General General appearance: alert, in no apparent distress and obese Head Head exam: atraumatic and normocephalic Eye Eye exam: Present PERRL and EOMI ENT ENT exam: Present mucous membranes moist Neck Neck exam: Present normal inspection and full ROM Chest Chest inspection: Present symmetric chest wall rise Respiratory Respiratory exam: Present normal lung sounds bilaterally; Absent respiratory distress, wheezes or stridor Cardiovascular Cardiovascular exam: Present regular rate, normal rhythm and other (2+ pulses in all extremities) Abdominal Exam Abdominal exam: Present soft; Absent distention, tenderness, guarding or rebound Extremities Exam Extremities exam: Present full ROM; Absent edema Neurological Exam Neurological exam: Present alert, oriented X3 and other (GCS 15, NIH 0); Absent motor sensory deficit Psychiatric Psychiatric exam: Present normal affect and normal mood Skin Skin exam: Present warm and dry Medical Decision Making Medical Records Screening: Per USPSTF and CDC recommendations, given the prevalence of disease in our region, it is our hospital?s policy to screen for HIV and viral Hepatitis for all patients aged 18 and over and those with ongoing risk factors. Pito Inquiry Pt receiving controlled substance: No Vital Signs: 09/29/24 22:33 09/29/24 23:00 09/29/24 23:10 Temperature 97.9 F Temperature Source Oral Pulse Rate 79 Pulse Rate [Orthostatic Lying Right Radial] Pulse Rate [Orthostatic Sitting] Pulse Rate [Orthostatic Standing Right Radial] Pulse Rate [Right Radial] 88 Respiratory Rate 16 16 Blood Pressure 114/78 132/79 Blood Pressure [Orthostatic Lying Right Arm] Blood Pressure [Orthostatic Sitting Right Arm] Blood Pressure [Orthostatic Standing Right Arm] Blood Pressure [Right Arm] 118/69 Blood Pressure Mean 95 Blood Pressure Mean [Right Arm] 85 Blood Pressure Source Blood Pressure Source [Right Arm] Automatic Cuff Blood Pressure Position Blood Pressure Position [Right Arm] Sitting 02 Sat by Pulse Oximetry 94 L 94 L Oxygen Delivery Method Room Air 09/29/24 23:10 09/29/24 23:11 09/29/24 23:13 Temperature Temperature Source Pulse Rate Pulse Rate [Orthostatic Lying Right Radial] 78 Pulse Rate [Orthostatic Sitting] 75 Pulse Rate [Orthostatic Standing Right Radial] 81 Pulse Rate [Right Radial] Respiratory Rate 17 Blood Pressure 119/71 124/80 Blood Pressure [Orthostatic Lying Right Arm] 119/71 Blood Pressure [Orthostatic Sitting Right Arm] 132/79 Blood Pressure [Orthostatic Standing Right Arm] 124/80 Blood Pressure [Right Arm] Blood Pressure Mean 88 Blood Pressure Mean [Right Arm] Blood Pressure Source Blood Pressure Source [Right Arm] Blood Pressure Position Blood Pressure Position [Right Arm] 02 Sat by Pulse Oximetry Oxygen Delivery Method 09/29/24 23:17 09/29/24 23:30 09/30/24 00:00 Temperature Temperature Source Pulse Rate 82 76 78 Pulse Rate [Orthostatic Lying Right Radial] Pulse Rate [Orthostatic Sitting] Pulse Rate [Orthostatic Standing Right Radial] Pulse Rate [Right Radial] Respiratory Rate 16 15 17 Blood Pressure 117/80 116/75 Blood Pressure [Orthostatic Lying Right Arm] Blood Pressure [Orthostatic Sitting Right Arm] Blood Pressure [Orthostatic Standing Right Arm] Blood Pressure [Right Arm] Blood Pressure Mean Blood Pressure Mean [Right Arm] Blood Pressure Source Blood Pressure Source [Right Arm] Blood Pressure Position Blood Pressure Position [Right Arm] 02 Sat by Pulse Oximetry 97 95 97 Oxygen Delivery Method 09/30/24 01:00 09/30/24 02:00 09/30/24 02:41 Temperature 97.9 F Temperature Source Oral Pulse Rate 78 81 74 Pulse Rate [Orthostatic Lying Right Radial] Pulse Rate [Orthostatic Sitting] Pulse Rate [Orthostatic Standing Right Radial] Pulse Rate [Right Radial] Respiratory Rate 20 14 16 Blood Pressure 132/85 128/82 128/74 Blood Pressure [Orthostatic Lying Right Arm] Blood Pressure [Orthostatic Sitting Right Arm] Blood Pressure [Orthostatic Standing Right Arm] Blood Pressure [Right Arm] Blood Pressure Mean Blood Pressure Mean [Right Arm] Blood Pressure Source Automatic Cuff Blood Pressure Source [Right Arm] Blood Pressure Position Supine Blood Pressure Position [Right Arm] 02 Sat by Pulse Oximetry 98 97 Oxygen Delivery Method Room Air Lab Data Lab Results 09/29/24 22:47: WBC 6.9, RBC 5.11, Hgb 14.1, Hct 43.8, MCV 85.7, MCH 27.6, MCHC 32.2, RDW 14.4, Plt Count 219, MPV 10.1, Neut % (Auto) 59.1, Lymph % (Auto) 28.6, [place] % (Auto) 8.8, Eos % (Auto) 2.2, Baso % (Auto) 1.0, Neut # (Auto) 4.1, Lymph # (Auto) 2.0, [place] # (Auto) 0.6, Eos # (Auto) 0.2, Baso # (Auto) 0.1, Sodium 139, Potassium 4.0, Chloride 109 H, Carbon Dioxide 22, Anion Gap 12.0, BUN 14, Creatinine 0.80, Estimated Creat Clear 81, Estimated GFR 76, Est GFR ( Amer) 92, Glucose 93, Calcium 9.4, Total Bilirubin 0.5, AST 39 H, ALT 39, Alkaline Phosphatase 56, Troponin I < 0.01, Total Protein 6.6, Albumin 4.1, Globulin 2.5, Albumin/Globulin Ratio 1.6, Serum HCG, Qual Negative, Plasma/Serum Alcohol < 10 09/29/24 23:00: NT-Pro-B Natriuret Pep 28.1, TSH 3.12, Free T4 1.17 09/30/24 01:00: Urine Color Yellow, Urine Appearance Clear, Urine pH 6.0, Ur Specific Archer 1.010, Urine Protein Negative, Urine Glucose (UA) Negative, Urine Ketones Negative, Urine Blood Negative, Urine Nitrate Negative, Urine Bilirubin Negative, Urine Urobilinogen 0.2, Ur Leukocyte Esterase 1+ A, Urine RBC None, Urine WBC 3-5, Ur Squamous Epith Cells 3-5, Urine Bacteria Trace, Urine Opiates Screen Negative, Urine Methadone Screen Negative, Ur Barbituates Screen Negative, Ur Phencyclidine Scrn Negative, Ur Amphetamines Screen Negative, U Benzodiazepines Scrn Negative, Urine Cocaine Screen Negative, U Marijuana (THC) Screen Negative 09/30/24 02:15: Troponin I < 0.01 09/30/24 05:00 09/30/24 05:00 Orders (Tests/Meds): ED MEDICATIONS Discontinued Medications Generic Name Dose Route Start Last Admin Trade Name Freq PRN Reason Stop Dose Admin Acetaminophen 650 mg 09/30/24 02:28 09/30/24 07:53 Acetaminophen 325mg Tab PO 10/30/24 02:27 650 mg Q4HP PRN Administration Fever or Mild Pain (1-3) Lactated Ringer's 1,000 mls @ 999 mls/hr 09/29/24 22:59 09/29/24 23:07 Lactated Ringer's 1000 Ml Bag IV 09/29/24 23:59 999 mls/hr .Q1H1M ONE Administration Iopamidol 80 ml 09/29/24 23:54 09/29/24 23:55 Iopamidol-370 (76%);100ml Bottle IV 09/29/24 23:55 80 ml ONCE ONE Administration Sodium Chloride 40 ml 09/29/24 23:54 09/29/24 23:55 0.9 % Sodium Chloride 50 Ml Vial IV 09/29/24 23:55 40 ml ONCE ONE Administration Sodium Chloride 10 ml 09/29/24 23:54 09/29/24 23:55 Sodium Chloride 0.9% 10ml Syr (Rad Only) IV 10/29/24 23:53 10 ml NEEDED PRN Administration Maintain IV Site ORDERS Category Date Time Status CT angio chest - dissection Stat Cat Scan 09/29/24 23:[address] head/brain wo con Stat Cat Scan 09/29/24 23:12 Completed POCUS Point of Care (ER Only) Stat Exams 09/29/24 23:01 Completed BNP [NT Pro Brain Natriuretic Pep.] Stat Lab 09/29/24 23:00 Completed Basic Metabolic Panel AMLAB Lab 09/30/24 05:00 Completed CBC w/Auto Diff [Complete Blood Count Auto Diff] Stat Lab 09/29/24 22:47 Completed CMP [Comprehensive Metabolic Panel] Stat Lab 09/29/24 22:47 Completed Complete Blood Count Auto Diff AMLAB Lab 09/30/24 05:00 Completed Ethanol [Ethyl Alcohol] Stat Lab 09/29/24 22:47 Completed Free T4 (Free Thyroxine) Stat Lab 09/29/24 23:00 Completed HCG Qualitative, Serum Stat Lab 09/29/24 22:47 Completed Magnesium AMLAB Lab 09/30/24 05:00 Completed Phosphorous AMLAB Lab 09/30/24 05:00 Completed TSH [Thyroid Stimulating Hormone] Stat Lab 09/29/24 23:00 Completed Trop I [Troponin I] Stat Lab 09/29/24 22:47 Completed Troponin I Q3H Lab 09/30/24 02:15 Completed Troponin I Q3H Lab 09/30/24 05:00 Completed UDS [Drug Screen,Urine] Stat Lab 09/30/24 01:00 Completed Urinalysis and Microscopic Stat Lab 09/30/24 01:00 Completed Urine Culture Stat Micro 09/30/24 01:00 Received Medical Decision Narrative: In summary, this 49-year-old female with comorbidities as described in the HPI which may not be at goal therapy presents to the emergency department today with presyncope episodes that are reportedly random, unprovoked, and not specifically caused or relieved by anything. Tonight with her episode prior to arrival she experienced chest tightness. On initial evaluation patient is hemodynamically stable, afebrile, GCS 15, NIH 0, cardiopulmonary exam at this time is benign, no peripheral edema, aside from being very obese patient does not have any acute abnormalities identified on exam. Differential diagnosis includes but is not limited to orthostatic hypotension, arrhythmia, ACS, PE, considered dissection though I have very low suspicion for this since patient has had no chest pain, also considered the possibility of intracranial lesion such as mass though I have lower suspicion for this as well since patient has no neurologic deficits. Additionally considered the possibility of illicit substance use, thyroid abnormality. Based on these concerns, I ordered orthostatic vitals, cardiac workup, [id number] ultrasound, urine studies, thyroid studies, CT imaging, among others. ECG personally interpreted demonstrates normal sinus rhythm, rate 87, normal axis, normal DC and QTc, patient has low voltage in the precordial leads, no STEMI. Orthostatic vitals demonstrate patient does not develop hypotension or tachycardia with positional changes. Left arm blood pressure 117/80, right arm blood pressure 124/80. No significant difference between the upper extremities which is reassuring Patient received IV fluids for treatment. Labs personally reviewed demonstrate normal CBC, CMP with trace elevation of AST at 39, hCG negative, EtOH negative, normal kidney function, UDS negative, UA negative for findings of infection. CT head personally interpreted does not demonstrate acute intracranial bleed, mass, or midline shift, see radiology read which comments on patient having slight prominence of the deep nuclei including the bilateral caudate, basal ganglia, and thalami, possibly reflecting underlying edema. CT angiography of the chest personally interpreted does not demonstrate aortic aneurysm or dissection, no large PE, no lobar infiltrate, see radiology read for final interpretation. On reassessment patient continues to rest comfortably and she has not had any recurrence of symptoms. I had shared decision-making discussion with the patient about her symptoms and progression of symptoms. I also discussed with her the option of admission for telemetry monitoring since I do have suspicion for intermittent arrhythmia being a possible cause for her symptoms. Her thyroid studies are reassuring as is her cardiac workup at this time but she has not had any episodes in the ER so we could be missing an underlying intermittent arrhythmia. Also discussed with her the incidental findings on CT including the possible deep brain structure edema, I have lower suspicion that those findings are contributing to the patient's symptoms since patient has no neurologic deficits but that MRI would be indicated for further evaluation. After discussion with patient and family at bedside about inpatient versus outpatient management, she would prefer to be admitted at this time which I believe is very reasonable since she is having unprovoked presyncopal episodes without an obvious cause. I discussed this case with the hospitalist, she recommended neurology consultation prior to accepting the patient to ensure that patient only needs urgent, not emergent MRI of the brain. [facility] was contacted. [id number] Holloway in the transfer center. She connected me with Dr. Graves with neurology and after discussing this case with her she recommended nonemergent MRI. I appreciate her recommendations. I reviewed these recommendations with the hospitalist who then graciously accepted the patient for admission to their service. Patient admitted in stable condition. Critical Care Critical Care Time Critical Care Time: No
[2024-09-29 23:05] LABS: Basophils # 0.1 K/mm3 (0-0.2); Eosinophils # 0.2 Kmm3 (0.0-0.4); Eosinophils % 2.2 % (0.1-12.0); Hematocrit 43.8 % (37.0-47.0); Hemoglobin 14.1 g/dL (12.2-16.2); Immature Granulocytes # 0.02 10^3uL; Immature Granulocytes % 0.3 %; Lymphocytes % 28.6 % (10-50); Mean Corpuscular HGB Conc 32.2 g/dL (31.8-35.4); Mean Corpuscular Hemoglobin 27.6 pg (27.0-31.2); Mean Corpuscular Volume 85.7 fl (81-99); Mean Platelet Volume 10.1 fl (7.4-10.4); Monocytes # 0.6 K/mm3 (0.1-1.0); Monocytes % 8.8 % (1.7-9.3); Neutrophils # 4.1 K/mm3 (1.8-7.8); Neutrophils % 59.1 % (37.0-80.0); Nucleated Red Blood Cells # 0 10^3/uL; Nucleated Red Blood Cells % 0 %; Platelet Count 219 K/mm3 (142-424); Red Blood Count 5.11 M/mm3 (4.20-5.40); Red Cell Distribution Width 14.4 % (11.5-17.5); Red Cell Distribution Width-SD 45.1 fL; White Blood Count 6.9 K/mm3 (4.8-10.8)
[2024-09-29] MEDS: LACTATED RINGERS 1000ML 1,000 ML 999 ML IV (23:07)
--- NOTE | 2024-09-29 23:08 | CT_ITS ---
PROCEDURE INFORMATION: Exam: CTA Chest With Contrast Exam date and time: 09/29/2024 11:46 PM Age: 49 years old Clinical indication: Other: Pre-syncopal episodes; Additional info: Syncopal episodes x2-3w TECHNIQUE: Imaging protocol: Computed tomographic angiography of the chest with contrast. Exam focused on the arteries. 3D rendering (Not supervised by radiologist): MIP and/or 3D reconstructed images were created by the technologist. Radiation optimization: All CT scans at this facility use at least one of these dose optimization techniques: automated exposure control; mA and/or kV adjustment per patient size (includes targeted exams where dose is matched to clinical indication); or iterative reconstruction. Contrast material: ISOUVE 370; Contrast volume: 80 ml; Contrast route: INTRAVENOUS (IV); COMPARISON: No relevant prior studies available. FINDINGS: Limitations: Quality of examination is limited by body habitus. There is motion artifact due to patient inability to cooperate which limits assessment. Pulmonary arteries: Suboptimal differential enhancement of the pulmonary arteries related to timing of IV contrast injection limits assessment. No gross central PE identified. Aorta: Unremarkable. No aortic aneurysm. No aortic dissection. Lungs: Unremarkable. No consolidation. No masses. Pleural spaces: Unremarkable. No pneumothorax. No pleural effusion. Heart: Unremarkable. No cardiomegaly. No pericardial effusion. Lymph nodes: Unremarkable. No enlarged lymph nodes. Liver: There is diffuse fatty infiltration of the liver. Intraperitoneal space: Postoperative change in the epigastrium incompletely visualized possibly gastric bypass. Bones/joints: Unremarkable. No acute fracture. Soft tissues: Unremarkable. IMPRESSION: 1. Limited assessment for reasons described. 2. No aneurysm, dissection or central PE identified. 3. No acute process identified. 4. Fatty liver. 5. Post-operative change as described.
[2024-09-29 23:11] LABS: Alanine Aminotransferase 39 U/L (12-78); Albumin Level 4.1 g/dl (3.5-5.0); Albumin/Globulin Ratio 1.6 (1.1-1.8); Alkaline Phosphatase 56 U/L (38-126); Aspartate Amino Transferase 39 U/L (14-36); Bilirubin,Total 0.5 mg/dl (0.2-1.3); Blood Urea Nitrogen 14 mg/dl (7-17); Calcium 9.4 mg/dl (8.4-10.2); Carbon Dioxide 22 mmol/L (22.0-30.0); Chloride 109 mmol/L (98-107); Creatinine Clearance Estimated 81 mL/min (50-200); Estimated Glomerular Filt Rate 76 ml/min (>60); GFR (African American) 92 ML/MIN (>60); Globulin 2.5 g/dL (1.3-3.2); Glucose 93 mg/dl (74-100); Sodium 139 mmol/L (136-145); Total Protein,Serum 6.6 g/dl (6.3-8.2)
--- NOTE | 2024-09-29 23:12 | CT_ITS ---
PROCEDURE INFORMATION: Exam: CT Head Without Contrast Exam date and time: 09/29/2024 11:35 PM Age: 49 years old Clinical indication: Other: Pre-syncopal episodes; Additional info: Random pre-syncopal episodes TECHNIQUE: Imaging protocol: Computed tomography of the head without contrast. Radiation optimization: All CT scans at this facility use at least one of these dose optimization techniques: automated exposure control; mA and/or kV adjustment per patient size (includes targeted exams where dose is matched to clinical indication); or iterative reconstruction. COMPARISON: No relevant prior studies available. FINDINGS: Brain: No acute intra- or extra axial hemorrhage or acute fluid collection. CSF density along the left frontotemporal convexity with chronic bone remodeling, (it is 3, image 37), nonspecific and could represent a small arachnoid cyst or the sequelae of a prior insult. fluid collections are identified. The basal cisterns are patent. No mass effect or midline shift is seen. There is mild prominence of the deep nuclei, including the bilateral caudate, bilateral basal ganglia, and the bilateral thalami, with slightly increased density, unclear whether reflecting underlying edema. MRI of the brain is recommended for further evaluation. The koehler-white matter differentiation is otherwise maintained. Periventricular hypoattenuation are nonspecific but likely the sequela of chronic small vessel ischemic disease. Cerebral ventricles: There is mild cerebral volume loss and ex vacuo dilation of the ventricles.. Paranasal sinuses: The paranasal sinuses appear grossly clear. Mastoid air cells: The mastoid air cells appear grossly clear. Orbital cavities: The orbits appear normal. Bones: No acute calvarial fracture is identified. Soft tissues: No soft tissue abnormalities identified. Vasculature: Suspected mild atherosclerotic calcifications of the carotid siphons. IMPRESSION: 1. No evidence of acute intracranial hemorrhage or midline shift. 2. There is mild prominence of the deep nuclei, including the bilateral caudate, bilateral basal ganglia, and the bilateral thalami, with slightly increased density, unclear whether reflecting underlying edema. MRI of the brain is recommended for further evaluation.
[2024-09-29 23:15] LABS: HCG Qualitative, Serum Negative (Negative)
[2024-09-29 23:16] LABS: Ethyl Alcohol < 10 mg/dl (0-10)
[2024-09-29 23:29] LABS: Troponin I < 0.01 ng/ml (0.00-0.034)
[2024-09-29 23:31] LABS: NT Pro Brain Natriuretic Pep. 28.1 pg/mL (0-125)
[2024-09-29 23:39] LABS: Free T4 (Free Thyroxine) 1.17 ng/dl (0.78-2.19)
[2024-09-29 23:52] LABS: Thyroid Stimulating Hormone 3.12 uIU/mL (0.465-4.68)
[2024-09-29] MEDS: SODIUM CHLORIDE 0.9% 10ML SYR (RAD ONLY) 10 ML IV (23:55)
[2024-09-29] MEDS: IOPAMIDOL-370 (76%);100ML BOTTLE 80 ML IV (23:55)
[2024-09-29] MEDS: 0.9 % SODIUM CHLORIDE 50 ML VIAL 40 ML IV (23:55)
[2024-09-30] VITALS (7 sets, daily range): BP systolic 116–132; BP diastolic 74–85; PULSE 74–85; RESP 12–23; TEMP 36.4–36.9; O2SAT 96–98; BMI 45.8; BMI 45.9
[2024-09-30 01:04] LABS: Microscopic, Urine URINE MICROSCOPIC (MICROSCOPIC)
[2024-09-30 01:05] LABS: Appearance,Urine CLEAR (Clear); Bilirubin,Urine Negative (Negative); Blood, Urine Negative (Negative); Color,Urine YELLOW (Yellow); Glucose,Urine (UA) Negative (Negative); Ketones,Urine Negative (Negative); Leukocyte Esterase,Urine 1+ (Negative); Nitrate,Urine Negative (Negative); Protein,Urine Negative (Negative); Urobilinogen,Urine 0.2 EU/dl (0.2)
[2024-09-30 01:16] LABS: Amphetamine/Metha Screen,Urine Negative ng/ml (<1000); Benzodiazepines Screen,Urine Negative ng/ml (<200)
[2024-09-30 01:17] LABS: Barbiturates Screen,Urine Negative ng/ml (<200)
[2024-09-30 01:18] LABS: Cannabinoid Screen,Urine Negative ng/ml (<50); Cocaine Screen,Urine Negative ng/ml (<300)
[2024-09-30 01:19] LABS: Methadone Screen,Urine Negative ng/ml (<300); Opiate Screen,Urine Negative ng/ml (<300)
[2024-09-30 01:20] LABS: Bacteria,Urine Trace /lpf; Phencyclidine Screen,Urine Negative ng/ml (<25)
[2024-09-30 02:45] LABS: Troponin I < 0.01 ng/ml (0.00-0.034)
--- NOTE | 2024-09-30 02:46 | P.HP_ITS ---
<Statement entered by Aaron Ta MD - 09/30/24 10:59> Rounded on patient after nurse practitioner. Personally examined and interviewed patient. Agree with exam findings and care plan as documented. History of Present Illness *Admission Date: 09/30/24 *Reason for visit:: Chest pain and syncope *History of present illness: This is a 49-year-old female with no significant past medical history who presents emergency department today with complaints of chest tightness and presyncopal episodes. She reports multiple presyncopal episodes with chest tightness over the last several months with more recent and frequent recurrent episodes. Reports today she had an episode where she felt like she was spacing out and developed sudden onset chest tightness. She reports most of her episodes follow the same pattern. She checked her blood pressure at that time a nd noticed she had elevated blood pressure in the 200s and 1 arm and a lower blood pressure in the other arm. She does self report that she does not think she was using her machine well. But this is what prompted her to come to the emergency department. She denies cough, fever, congestion. Denies palpitations. Blood work in the emergency department negative. CTA of the chest negative for any dissection or other abnormalities. CT of the head with mild prominence of the deep nuclei including bilateral caudate, bilateral basal ganglia and bilateral thalami with slightly increased density which could represent early edema. Recommend MRI follow-up. Given the above-mentioned CT finding, [facility] neurology was consulted and recommends nonemergent MRI but given patient's complaints, less likely causative factor for presyncopal events. Given her chest tightness and presyncopal episodes it was felt she would benefit from observation and monitoring. She is admitted to hospital service at this time [facility] Disclaimer: The information contained in this section may have been updated after the patient was seen, as this information can be updated by other users. Social History Smoking Status: Never smoker alcohol intake: never current occupational status: other Travel in the last 8 weeks?: None Review of Systems Review of Systems Review of systems:: pertinent systems reviewed and negative unless documented below Meds Home Medications and Allergies New Prescriptions to Start Prescriptions: Allergies Allergy/AdvReac Type Severity Reaction Status Date / Time PCN (PENICILLIN) Allergy Unknown Uncoded 05/03/17 14:00 Exam Data for Last 24 hours Vital signs and Labs for Last 24 Hours: Temp Pulse Resp BP Pulse Ox O2 Del Method 97.9 F 74 16 128/74 97 Room Air 09/30/24 02:41 09/30/24 02:41 09/30/24 02:41 09/30/24 02:41 09/30/24 02:00 09/30/24 02:41 Laboratory Results - last 24 hr 09/29/24 22:47: WBC 6.9, RBC 5.11, Hgb 14.1, Hct 43.8, MCV 85.7, MCH 27.6, MCHC 32.2, RDW 14.4, Plt Count 219, MPV 10.1, Neut % (Auto) 59.1, Lymph % (Auto) 28.6, [place] % (Auto) 8.8, Eos % (Auto) 2.2, Baso % (Auto) 1.0, Neut # (Auto) 4.1, Lymph # (Auto) 2.0, [place] # (Auto) 0.6, Eos # (Auto) 0.2, Baso # (Auto) 0.1, Sodium 139, Potassium 4.0, Chloride 109 H, Carbon Dioxide 22, Anion Gap 12.0, BUN 14, Creatinine 0.80, Estimated Creat Clear 81, Estimated GFR 76, Est GFR ( Amer) 92, Glucose 93, Calcium 9.4, Total Bilirubin 0.5, AST 39 H, ALT 39, Alkaline Phosphatase 56, Troponin I < 0.01, Total Protein 6.6, Albumin 4.1, Globulin 2.5, Albumin/Globulin Ratio 1.6, Serum HCG, Qual Negative, Plasma/Serum Alcohol < 10 09/29/24 23:00: NT-Pro-B Natriuret Pep 28.1, TSH 3.12, Free T4 1.17 09/30/24 01:00: Urine Color Yellow, Urine Appearance Clear, Urine pH 6.0, Ur Specific [place] 1.010, Urine Protein Negative, Urine Glucose (UA) Negative, Urine Ketones Negative, Urine Blood Negative, Urine Nitrate Negative, Urine Bilirubin Negative, Urine Urobilinogen 0.2, Ur Leukocyte Esterase 1+ A, Urine RBC None, Urine WBC 3-5, Ur Squamous Epith Cells 3-5, Urine Bacteria Trace, Urine Opiates Screen Negative, Urine Methadone Screen Negative, Ur Barbituates Screen Negative, Ur Phencyclidine Scrn Negative, Ur Amphetamines Screen Negative, U Benzodiazepines Scrn Negative, Urine Cocaine Screen Negative, U Marijuana (THC) Screen Negative 09/30/24 02:15: Troponin I < 0.01 I & O for Last 24 hours: Intake & Output 09/27/24 09/28/24 09/29/24 09/30/24 23:59 23:59 23:59 23:59 Weight 131.088 kg Constitutional Constitutional: no acute distress *Routine HEENT Exam Head: Present normocephalic Eye: Present EOMI and PERRL ENT: Present mucous membranes moist *Routine Neck Exam Neck: Present supple; Absent lymphadenopathy *Routine Respiratory Exam Respiratory: Present CTA bilaterally *Routine Cardiovascular Exam Cardiovascular: Present RRR *Routine Abdominal Exam Abdominal: Present soft and normoactive bowel sounds; Absent tenderness *Routine Rectal Exam Rectal:: deferred *Routine Genitalia Exam Genitalia:: deferred *Routine Extremities Exam Extremities: Absent cyanosis, clubbing or edema *Routine Skin Exam Skin: Present warm; Absent rash *Routine Neurological Exam Neurological: Present alert and oriented X3 Assessment and Plan *Assessment and plan (1) Pre-syncope: Status: Acute Category: Medical Code(s): R55 - Syncope and collapse (2) Abnormal head CT: Status: Acute Category: Medical Code(s): R93.0 - Abnormal findings on diagnostic imaging of skull and head, not elsewhere classified Plan #Presyncope Patient describes chest tightness and presyncopal episodes that are more frequent occurring every day. Reports that she feels like she is blacking out with extreme chest tightness. Likely cardiac in nature. Currently normal sinus rhythm on the bedside monitor. Will monitor throughout the night for cardiac abnormalities. Will need close follow-up outpatient. Likely would benefit from Holter monitor for 30 days. Electrolytes and TSH within in normal limits # Abnormal CT head Questionable early edema noted on basal ganglia and bilateral thalami. [facility] neurology recommends nonemergent MRI. Given chest pain with presyncopal episodes CT findings likely not contributing, Monitor neurostatus while hospitalized
[2024-09-30 05:23] LABS: Basophils % 0.6 % (0.1-2.0); Eosinophils # 0.1 Kmm3 (0.0-0.4); Eosinophils % 2.9 % (0.1-12.0); Hematocrit 41.9 % (37.0-47.0); Hemoglobin 13.4 g/dL (12.2-16.2); Immature Granulocytes # 0.01 10^3uL; Immature Granulocytes % 0.2 %; Lymphocytes # 1.6 K/mm3 (0.7-4.5); Lymphocytes % 32.6 % (10-50); Mean Corpuscular Hemoglobin 27.6 pg (27.0-31.2); Mean Corpuscular Volume 86.2 fl (81-99); Mean Platelet Volume 9.5 fl (7.4-10.4); Monocytes # 0.4 K/mm3 (0.1-1.0); Monocytes % 8.8 % (1.7-9.3); Neutrophils # 2.7 K/mm3 (1.8-7.8); Neutrophils % 54.9 % (37.0-80.0); Nucleated Red Blood Cells # 0 10^3/uL; Nucleated Red Blood Cells % 0 %; Platelet Count 187 K/mm3 (142-424); Red Blood Count 4.86 M/mm3 (4.20-5.40); Red Cell Distribution Width 14.6 % (11.5-17.5); Red Cell Distribution Width-SD 45.9 fL; White Blood Count 4.9 K/mm3 (4.8-10.8)
[2024-09-30 05:29] LABS: Chloride 109 mmol/L (98-107); Sodium 139 mmol/L (136-145)
[2024-09-30 05:30] LABS: Potassium 3.9 mmoL/L (3.5-5.1)
[2024-09-30 05:32] LABS: Anion Gap 5.9 mEq/L (5-15); Blood Urea Nitrogen 12 mg/dl (7-17); Carbon Dioxide 28 mmol/L (22.0-30.0); Creatinine Clearance Estimated 69 mL/min (50-200); Estimated Glomerular Filt Rate 66 ml/min (>60); GFR (African American) 80 ML/MIN (>60)
[2024-09-30 05:33] LABS: Calcium 9.3 mg/dl (8.4-10.2); Glucose 92 mg/dl (74-100); Phosphorous 3.7 mg/dl (2.5-4.5)
[2024-09-30 05:45] LABS: Troponin I < 0.01 ng/ml (0.00-0.034)
--- NOTE | 2024-09-30 06:02 | PC.NURSE ---
Pt alert and oriented x 4. pt has rested well since admission. pt is NSR on telemetry. pt has no acute changes to note this shift.
[2024-09-30] MEDS: ACETAMINOPHEN 325MG TAB 650 MG PO (07:53)
--- NOTE | 2024-09-30 09:42 | EXP.DC.SUM ---
General Admission date:: 09/30/24 Discharge date: 09/30/24 HPI HPI HPI: This is a 49-year-old female with no significant past medical history who presents emergency department today with complaints of chest tightness and presyncopal episodes. She reports multiple presyncopal episodes with chest tightness over the last several months with more recent and frequent recurrent episodes. Reports today she had an episode where she felt like she was spacing out and developed sudden onset chest tightness. She reports most of her episodes follow the same pattern. She checked her blood pressure at that time and noticed she had elevated blood pressure in the 200s and 1 arm and a lower blood pressure in the other arm. She does self report that she does not think she was using her machine well. But this is what prompted her to come to the emergency department. She denies cough, fever, congestion. Denies palpitations. Blood work in the emergency department negative. CTA of the chest negative for any dissection or other abnormalities. CT of the head with mild prominence of the deep nuclei including bilateral caudate, bilateral basal ganglia and bilateral thalami with slightly increased density which could represent early edema. Recommend MRI follow-up. Given the above-mentioned CT finding, [facility] neurology was consulted and recommends nonemergent MRI but given patient's complaints, less likely causative factor for presyncopal events. Given her chest tightness and presyncopal episodes it was felt she would benefit from observation and monitoring. She is admitted to hospital service at this time Hospital Course Hospital Course Hospital Course: 49-year-old female who presented with presyncopal event. No further events overnight. Remained stable on telemetry. Serial troponins negative. Initiated on Holter monitor. Discharged home with plan for close follow-up as an outpatient. Defer further imaging to PCP. Problems addressed as follows: #Presyncope Patient describes chest tightness and presyncopal episodes that are more frequent occurring every day. Reports that she feels like she is blacking out with extreme chest tightness. EKG normal sinus rhythm. Serial troponins negative. No further events after admission. Holter monitor placed prior to discharge. Given her normal labs in the morning, recommend discharge home with close follow-up with her PCP for further management. Suspect potential side effect from her medications. Stable to discharge. Follow with PCP within the next week. - Electrolytes and TSH within in normal limits # Abnormal CT head Questionable early edema noted on basal ganglia and bilateral thalami. neurology recommends nonemergent MRI. Given chest pain with presyncopal episodes CT findings likely not contributing no change in neuro exam during admission. Recommend MRI as an outpatient. Exam Data for Last 24 hours Vital signs and Labs for Last 24 Hours: Temp Pulse Resp BP Pulse Ox O2 Del Method 98.4 F 83 23 123/78 97 Room Air 09/30/24 08:00 09/30/24 08:00 09/30/24 08:00 09/30/24 08:00 09/30/24 08:00 09/30/24 08:46 Laboratory Results - last 24 hr 09/29/24 22:47: WBC 6.9, RBC 5.11, Hgb 14.1, Hct 43.8, MCV 85.7, MCH 27.6, MCHC 32.2, RDW 14.4, Plt Count 219, MPV 10.1, Neut % (Auto) 59.1, Lymph % (Auto) 28.6, [place] % (Auto) 8.8, Eos % (Auto) 2.2, Baso % (Auto) 1.0, Neut # (Auto) 4.1, Lymph # (Auto) 2.0, [place] # (Auto) 0.6, Eos # (Auto) 0.2, Baso # (Auto) 0.1, Sodium 139, Potassium 4.0, Chloride 109 H, Carbon Dioxide 22, Anion Gap 12.0, BUN 14, Creatinine 0.80, Estimated Creat Clear 81, Estimated GFR 76, Est GFR ( Amer) 92, Glucose 93, Calcium 9.4, Total Bilirubin 0.5, AST 39 H, ALT 39, Alkaline Phosphatase 56, Troponin I < 0.01, Total Protein 6.6, Albumin 4.1, Globulin 2.5, Albumin/Globulin Ratio 1.6, Serum HCG, Qual Negative, Plasma/Serum Alcohol < 10 09/29/24 23:00: NT-Pro-B Natriuret Pep 28.1, TSH 3.12, Free T4 1.17 09/30/24 01:00: Urine Color Yellow, Urine Appearance Clear, Urine pH 6.0, Ur Specific [place] 1.010, Urine Protein Negative, Urine Glucose (UA) Negative, Urine Ketones Negative, Urine Blood Negative, Urine Nitrate Negative, Urine Bilirubin Negative, Urine Urobilinogen 0.2, Ur Leukocyte Esterase 1+ A, Urine RBC None, Urine WBC 3-5, Ur Squamous Epith Cells 3-5, Urine Bacteria Trace, Urine Opiates Screen Negative, Urine Methadone Screen Negative, Ur Barbituates Screen Negative, Ur Phencyclidine Scrn Negative, Ur Amphetamines Screen Negative, U Benzodiazepines Scrn Negative, Urine Cocaine Screen Negative, U Marijuana (THC) Screen Negative 09/30/24 02:15: Troponin I < 0.01 09/30/24 05:00: WBC 4.9 D, RBC 4.86, Hgb 13.4, Hct 41.9, MCV 86.2, MCH 27.6, MCHC 32.0, RDW 14.6, Plt Count 187, MPV 9.5, Neut % (Auto) 54.9, Lymph % (Auto) 32.6, [place] % (Auto) 8.8, Eos % (Auto) 2.9, Baso % (Auto) 0.6, Neut # (Auto) 2.7, Lymph # (Auto) 1.6, [place] # (Auto) 0.4, Eos # (Auto) 0.1, Baso # (Auto) 0.0, Sodium 139, Potassium 3.9, Chloride 109 H, Carbon Dioxide 28, Anion Gap 5.9, BUN 12, Creatinine 0.90, Estimated Creat Clear 69, Estimated GFR 66, Est GFR ( Amer) 80, Glucose 92, Calcium 9.3, Phosphorus 3.7, Magnesium 2.0, Troponin I < 0.01 I & O for Last 24 hours: Intake & Output 09/27/24 09/28/24 09/29/24 09/30/24 23:59 23:59 23:59 23:59 Intake Total 120 / 120 Output Total 0 / 0 Balance 120 / 120 Weight 131.088 kg 132.812 kg Constitutional Constitutional: no acute distress, morbidly obese and cooperative *Routine HEENT Exam Head: Present normocephalic Eye: Present EOMI and PERRL ENT: Present mucous membranes moist *Routine Neck Exam Neck: Present supple; Absent lymphadenopathy *Routine Respiratory Exam Respiratory: Present CTA bilaterally; Absent rhonchi, wheezes or crackles *Routine Cardiovascular Exam Cardiovascular: Present RRR *Routine Abdominal Exam Abdominal: Present soft and normoactive bowel sounds; Absent tenderness *Routine Rectal Exam Patient deferred: visual exam *Routine Exam Patient deferred: external exam *Routine Extremities Exam Extremities: Absent cyanosis, clubbing or edema *Routine Skin Exam Skin: Present intact and warm; Absent rash *Routine Neurological Exam Neurological: Present alert, oriented X3 and moving all extremities; Absent altered mental status Results Data Completed and Pending Labs on day of discharge: Labs from last 24 hours 09/30/24 09/30/24 09/30/24 05:00 02:15 01:00 WBC 4.9 D RBC 4.86 Hgb 13.4 Hct 41.9 MCV 86.2 MCH 27.6 MCHC 32.0 RDW 14.6 Plt Count 187 MPV 9.5 Neut % (Auto) 54.9 Lymph % (Auto) 32.6 [place] % (Auto) 8.8 Eos % (Auto) 2.9 Baso % (Auto) 0.6 Neut # (Auto) 2.7 Lymph # (Auto) 1.6 [place] # (Auto) 0.4 Eos # (Auto) 0.1 Baso # (Auto) 0.0 Sodium 139 Potassium 3.9 Chloride 109 H Carbon Dioxide 28 Anion Gap 5.9 BUN 12 Creatinine 0.90 Estimated Creat Clear 69 Estimated GFR 66 Est GFR ( Amer) 80 Glucose 92 Calcium 9.3 Phosphorus 3.7 Magnesium 2.0 Total Bilirubin AST ALT Alkaline Phosphatase Troponin I < 0.01 < 0.01 NT-Pro-B Natriuret Pep Total Protein Albumin Globulin Albumin/Globulin Ratio TSH Free T4 Serum HCG, Qual Urine Color Yellow Urine Appearance Clear Urine pH 6.0 Ur Specific [place] 1.010 Urine Protein Negative Urine Glucose (UA) Negative Urine Ketones Negative Urine Blood Negative Urine Nitrate Negative Urine Bilirubin Negative Urine Urobilinogen 0.2 Ur Leukocyte Esterase 1+ A Urine RBC None Urine WBC 3-5 Ur Squamous Epith Cells 3-5 Urine Bacteria Trace Urine Opiates Screen Negative Urine Methadone Screen Negative Ur Barbituates Screen Negative Ur Phencyclidine Scrn Negative Ur Amphetamines Screen Negative U Benzodiazepines Scrn Negative Urine Cocaine Screen Negative U Marijuana (THC) Screen Negative Plasma/Serum Alcohol 09/29/24 09/29/24 23:00 22:47 WBC 6.9 RBC 5.11 Hgb 14.1 Hct 43.8 MCV 85.7 MCH 27.6 MCHC 32.2 RDW 14.4 Plt Count 219 MPV 10.1 Neut % (Auto) 59.1 Lymph % (Auto) 28.6 [place] % (Auto) 8.8 Eos % (Auto) 2.2 Baso % (Auto) 1.0 Neut # (Auto) 4.1 Lymph # (Auto) 2.0 [place] # (Auto) 0.6 Eos # (Auto) 0.2 Baso # (Auto) 0.1 Sodium 139 Potassium 4.0 Chloride 109 H Carbon Dioxide 22 Anion Gap 12.0 BUN 14 Creatinine 0.80 Estimated Creat Clear 81 Estimated GFR 76 Est GFR ( Amer) 92 Glucose 93 Calcium 9.4 Phosphorus Magnesium Total Bilirubin 0.5 AST 39 H ALT 39 Alkaline Phosphatase 56 Troponin I < 0.01 NT-Pro-B Natriuret Pep 28.1 Total Protein 6.6 Albumin 4.1 Globulin 2.5 Albumin/Globulin Ratio 1.6 TSH 3.12 Free T4 1.17 Serum HCG, Qual Negative Urine Color Urine Appearance Urine pH Ur Specific [place] Urine Protein Urine Glucose (UA) Urine Ketones Urine Blood Urine Nitrate Urine Bilirubin Urine Urobilinogen Ur Leukocyte Esterase Urine RBC Urine WBC Ur Squamous Epith Cells Urine Bacteria Urine Opiates Screen Urine Methadone Screen Ur Barbituates Screen Ur Phencyclidine Scrn Ur Amphetamines Screen U Benzodiazepines Scrn Urine Cocaine Screen U Marijuana (THC) Screen Plasma/Serum Alcohol < 10 DS: Diagnosis Discharge Diagnosis (1) Pre-syncope: Status: Acute Code(s): R55 - Syncope and collapse (2) Abnormal head CT: Status: Acute Code(s): R93.0 - Abnormal findings on diagnostic imaging of skull and head, not elsewhere classified (3) Morbid obesity with BMI of 45.0-49.9, adult: Status: Acute Code(s): E66.01 - Morbid (severe) obesity due to excess calories; Z68.42 - Body mass index [BMI] 45.0-49.9, adult (4) Bipolar 1 disorder: Status: Chronic Code(s): F31.9 - Bipolar disorder, unspecified Meds Home Medications and Allergies Home Medications ?Medication ?Instructions ?Recorded ?Confirmed ?Type aripiprazole 10 mg tablet 10 mg PO DAILY 09/30/24 09/30/24 History baclofen 10 mg tablet 10 mg PO NEEDED PRN back spasms 09/30/24 09/30/24 History bupropion HCl 150 mg 24 hr tablet, 150 mg PO DAILY 09/30/24 09/30/24 History extended release citalopram 40 mg tablet 40 mg PO DAILY 09/30/24 09/30/24 History clonidine HCl 0.1 mg tablet 0.1 mg PO HS 09/30/24 09/30/24 History tirzepatide (weight loss) 7.5 7.5 mg SQ WEEKLY 09/30/24 09/30/24 History mg/0.5 mL subcutaneous pen injector (Zepbound) New Prescriptions to Start Prescriptions: Allergies Allergy/AdvReac Type Severity Reaction Status Date / Time PCN (PENICILLIN) Allergy Unknown Uncoded 05/03/17 14:00 Discharge Plan Disposition Patient Disposition: Home, Self-Care Condition: Good Follow up Plan Follow up with: Mony Sidhu MD [Referring] - Enter time for follow up (Please call office for follow up appointment) Prescriptions/Medication Reconciliation: Continued clonidine HCl 0.1 mg tablet 0.1 mg PO HS citalopram 40 mg tablet 40 mg PO DAILY baclofen 10 mg tablet 10 mg PO NEEDED PRN (Reason: back spasms) aripiprazole 10 mg tablet 10 mg PO DAILY bupropion HCl 150 mg tablet extended release 24 hr 150 mg PO DAILY Zepbound 7.5 mg/0.5 mL pen injector 7.5 mg SQ WEEKLY Problem Reconciliation Problems Reviewed?: Yes Patient Discharge Instructions ACTIVITY: Continue current activity DIET: continue same diet Patient Instructions: DI for Syncope in Adults (Fainting), Fainting Print Language: Latvian Providers Primary Care Provider: Provider,Referral Admit Provider: Aaron Ta Attending Provider: Aaron Ta
--- NOTE | 2024-10-01 10:43 | SW/DCPLANNER ---
Spoke with patient on the phone. Patient stated that she is doing good. Patient stated that she has called and scheduled a follow up with the DR. Patient stated that she has not prescribed any new medicine. Patient stated that she has no concerns or questions at this time. Yang Stein
== END 2024-09-30 10:47 | disposition home or self-care (01) ==
LOC: ER 22:58 → 2ND 09-30 02:43
PROVIDERS: Nurse Practitioner Acute Care; Admitting Provider Internal Medicine Adolescent Medicine; Emergency Provider Emergency Medicine; Visit Provider Internal Medicine Adolescent Medicine
DX: R55 Syncope and collapse (principal); E66.01 Morbid (severe) obesity due to excess calories; R07.89 Other chest pain; F31.9 Bipolar disorder, unspecified; R93.0 Abnormal findings on diagnostic imaging of skull and head, not elsewhere classified; Z68.42 Body mass index [BMI] 45.0-49.9, adult; Z88.0 Allergy status to penicillin; Z80.8 Family history of malignant neoplasm of other organs or systems; Z82.49 Family history of ischemic heart disease and other diseases of the circulatory system; Z79.899 Other long term (current) drug therapy
CPT/HCPCS: 70450; 71275; 80048; 80053; 80307; 80320; 81001; 83735; 83880; 84100; 84439; 84443; 84484; 84703; 85025; 87086; 93005; 93225; 93227; 99285; G0378; J7120; Q9967